=== PATIENT | male | born 1980 | race Caucasian/White ===

== ENCOUNTER 2022-12-05 00:28 | Observation (INO) | payer OTHER ==
[2022-12-05] MEDS ORDERED: Morphine 4 MG/ML VIAL ONE ×2 (01:23→04:05)
[2022-12-05] MEDS ORDERED: Ondansetron PF 4 MG/2 ML Vial ONE (01:23)
[2022-12-05] MEDS ORDERED: fentaNYL 50 mcg/mL 1 mL Vial ONE (01:23)
[2022-12-05] MEDS ORDERED: Acetaminophen 500 MG TAB ONE (03:17)
[2022-12-05 05:16] VITALS: BMI 34.1
[2022-12-05 06:19] LABS: Troponin I Less than 0.010 ng/mL (< 0.028)
[2022-12-05 07:46] LABS: ALT (SGPT) 33 U/L (8-55); AST (SGOT) 26 U/L (5-34); Albumin 4.2 g/dL (3.5-5.0); Alkaline Phosphatase 67 U/L (40-110); Anion Gap 16 mmol/L (10-20); BUN (Urea Nitrogen) 19 mg/dL (8.9-20.6); Bilirubin, Total 0.4 mg/dL (0.2-1.2); Calc. Creatinine Clearance 159 mL/min (70-130); Calcium 9.2 mg/dL (7.8-10.44); Carbon Dioxide 21 mmol/L (22-29); Chloride 105 mmol/L (98-107); Estimated GFR 84; Glucose 106 mg/dL (70-105); Protein, Total 8.2 g/dL (6.0-8.3); Sodium 138 mmol/L (136-145)
[2022-12-05 08:10] LABS: Lipase 59 U/L (8-78)
[2022-12-05 08:21] LABS: #Basophils 0.1 thou/uL (0.0-0.2); #Eosinphils 0.2 thou/uL (0.0-0.7); #Lymphocytes 1.6 thou/uL (1.20-3.40); #Monocytes 0.5 thou/uL (0.11-0.59); #Neutrophils 2.7 thou/uL (1.40-6.50); %Basophils 2.5 % (0.0-1.0); %Eosinophils 3.8 % (0.0-10.0); %Lymphocytes 30.9 % (21.0-51.0); %Monocytes 9.5 % (0.0-10.0); %Neutrophils 53.3 % (42.0-75.0); Hemoglobin 13.6 g/dL (14.0-18.0); Mean Corpuscular HGB CONC 32.3 g/dL (32.0-36.0); Mean Corpuscular Hemoglobin 30.4 pg (27.0-31.0); Mean Corpuscular Volume 94.2 fl (78.0-98.0); Mean Platelet Volume 8.1 fL (7.4-10.4); Platelet Count 172 10x3/uL (130-400); RBC Distribution Width 11.8 % (11.5-14.5); Red Blood Cell (RBC) Count 4.46 mill/uL (4.70-6.10); White Blood Cell (WBC) Count 5.1 10x3/uL (4.8-10.8)
[2022-12-05 08:31] LABS: Prothrombin Time 12.5 sec (12.0-14.7)
[2022-12-05 08:32] LABS: INR-International Normal Ratio 0.9; PTT 22.7 sec (22.9-36.1)
[2022-12-05] MEDS ORDERED: Senokot S 8.6-50 MG TAB PO PRN (08:36)
[2022-12-05] MEDS ORDERED: Sodium Chloride 0.9% 1,000 ML IV SCH (08:45)
[2022-12-05] MEDS: Morphine 4 MG/ML VIAL SLOW IVP PRN ×2 (09:17→16:13)
[2022-12-05] MEDS: Ondansetron PF 4 MG/2 ML Vial IVP PRN (09:18)
[2022-12-05 09:52] LABS: Troponin I Less than 0.010 ng/mL (< 0.028)
[2022-12-05] MEDS: HYDROmorphone 2 MG TAB PO PRN ×3 (11:53→23:40)
[2022-12-05] MEDS ORDERED: Communication Order-Pharmacy FS PRN (15:00)
[2022-12-05] MEDS ORDERED: Iopamidol-370 76% 500 ML MDV (1 ML CHARGE) ONE (15:13)
[2022-12-06] MEDS ORDERED: Sodium Chloride 0.9% 500 ML IV SCH ×2 (00:01→10:00)
[2022-12-06 04:27] LABS: #Eosinphils 0.2 thou/uL (0.0-0.7); #Lymphocytes 1.4 thou/uL (1.20-3.40); #Monocytes 0.5 thou/uL (0.11-0.59); #Neutrophils 1.7 thou/uL (1.40-6.50); %Eosinophils 5.7 % (0.0-10.0); %Lymphocytes 36.8 % (21.0-51.0); %Monocytes 12.5 % (0.0-10.0); %Neutrophils 45.1 % (42.0-75.0); Hemoglobin 13.8 g/dL (14.0-18.0); Mean Corpuscular HGB CONC 35.2 g/dL (32.0-36.0); Mean Corpuscular Hemoglobin 33.4 pg (27.0-31.0); Mean Corpuscular Volume 94.8 fl (78.0-98.0); Mean Platelet Volume 7.5 fL (7.4-10.4); Platelet Count 174 10x3/uL (130-400); RBC Distribution Width 11.6 % (11.5-14.5); Red Blood Cell (RBC) Count 4.15 mill/uL (4.70-6.10); White Blood Cell (WBC) Count 3.8 10x3/uL (4.8-10.8)
[2022-12-06 04:55] LABS: Anion Gap 13 mmol/L (10-20); BUN (Urea Nitrogen) 14 mg/dL (8.9-20.6); Calc. Creatinine Clearance 160 mL/min (70-130); Calcium 8.8 mg/dL (7.8-10.44); Carbon Dioxide 23 mmol/L (22-29); Cardiac Risk 3.1 (Less than 4.5); Chloride 106 mmol/L (98-107); Cholesterol 118 mg/dl (< 200 Desired); Estimated GFR 85; Glucose 103 mg/dL (70-105); HDL Cholesterol 38 mg/dL (>60 Neg Risk); LDL Cholesterol, Calculated 62 mg/dL; Sodium 138 mmol/L (136-145); Triglycerides 88 mg/dL (Less than 150)
[2022-12-06] MEDS: Lisinopril 20 MG TAB PO SCH (05:45)
[2022-12-06] MEDS: Escitalopram Oxalate 20 mg Tablet PO SCH (05:45)
[2022-12-06] MEDS: Atorvastatin Calcium 40 MG TAB PO SCH (05:46)
[2022-12-06] MEDS: HYDROmorphone 2 MG TAB PO PRN ×2 (06:26→19:35)
[2022-12-06] MEDS ORDERED: Nitroglycerin 50 MG/250 ML BOT 250 ML ONE (08:57)
[2022-12-06] MEDS ORDERED: Verapamil 5 MG/2 ML VIAL ONE (08:57)
[2022-12-06] MEDS ORDERED: Heparin 10,000 UNITS/ 10 ML VIAL ONE (08:57)
[2022-12-06] MEDS ORDERED: Lidocaine 1% PF 5 ML VIAL ONE (08:57)
[2022-12-06] MEDS ORDERED: fentaNYL 50 mcg/mL 1 mL Vial ONE (09:20)
[2022-12-06] MEDS ORDERED: Midazolam HCl 2 mg/2 ml Vial ONE (09:21)
[2022-12-06] MEDS ORDERED: Iopamidol 370 76% 100 ML VIAL ONE (09:48)
[2022-12-06] MEDS ORDERED: Sodium Chloride 0.9% 200 ML IV PRN (09:55)
[2022-12-06] MEDS: Acetaminophen/Codeine 30-300mg Tablet PO PRN ×2 (11:54→17:38)
[2022-12-06] MEDS: Ondansetron PF 4 MG/2 ML Vial IVP PRN (19:34)
[2022-12-06] MEDS: Morphine 4 MG/ML VIAL SLOW IVP PRN (21:53)
[2022-12-07] MEDS: Ondansetron PF 4 MG/2 ML Vial IVP PRN ×2 (02:02→10:09)
[2022-12-07] MEDS: Morphine 4 MG/ML VIAL SLOW IVP PRN ×3 (02:02→10:09)
[2022-12-07 05:35] LABS: #Eosinphils 0.2 thou/uL (0.0-0.7); #Lymphocytes 1.3 thou/uL (1.20-3.40); #Monocytes 0.4 thou/uL (0.11-0.59); #Neutrophils 2.2 thou/uL (1.40-6.50); %Basophils 0.4 % (0.0-1.0); %Eosinophils 4.4 % (0.0-10.0); %Lymphocytes 31.3 % (21.0-51.0); %Monocytes 10.1 % (0.0-10.0); %Neutrophils 53.9 % (42.0-75.0); Hemoglobin 14.4 g/dL (14.0-18.0); Mean Corpuscular HGB CONC 35.5 g/dL (32.0-36.0); Mean Corpuscular Hemoglobin 33.1 pg (27.0-31.0); Mean Corpuscular Volume 93.3 fl (78.0-98.0); Mean Platelet Volume 7.4 fL (7.4-10.4); Platelet Count 176 10x3/uL (130-400); RBC Distribution Width 11.4 % (11.5-14.5); Red Blood Cell (RBC) Count 4.37 mill/uL (4.70-6.10); White Blood Cell (WBC) Count 4.1 10x3/uL (4.8-10.8)
[2022-12-07 06:12] LABS: ALT (SGPT) 25 U/L (8-55); AST (SGOT) 16 U/L (5-34); Albumin 3.9 g/dL (3.5-5.0); Alkaline Phosphatase 65 U/L (40-110); Anion Gap 14 mmol/L (10-20); BUN (Urea Nitrogen) 18 mg/dL (8.9-20.6); Bilirubin, Total 0.3 mg/dL (0.2-1.2); Calc. Creatinine Clearance 160 mL/min (70-130); Calcium 9.3 mg/dL (7.8-10.44); Carbon Dioxide 22 mmol/L (22-29); Chloride 104 mmol/L (98-107); Estimated GFR 85; Glucose 101 mg/dL (70-105); Potassium 3.9 mmol/L (3.5-5.1); Protein, Total 6.9 g/dL (6.0-8.3); Sodium 136 mmol/L (136-145)
[2022-12-07] MEDS: Acetaminophen 325 MG TAB PO PRN ×2 (08:07→14:28)
[2022-12-07] MEDS: Lisinopril 20 MG TAB PO SCH (08:09)
[2022-12-07] MEDS: Escitalopram Oxalate 20 mg Tablet PO SCH (08:09)
[2022-12-07] MEDS: Atorvastatin Calcium 40 MG TAB PO SCH (08:09)
[2022-12-07] MEDS ORDERED: Iopamidol-370 76% 500 ML MDV (1 ML CHARGE) ONE (09:59)
[2022-12-07] MEDS ORDERED: Sodium Chloride 0.9% 500 ML IV SCH (10:00)
[2022-12-07 12:31] VITALS: BP 119/61; TEMP 97.8
== END 2022-12-07 14:40 | disposition home or self-care (01) ==
LOC: ERS 00:28 → ERHOLD 04:53 → 2SW 08:29
PROVIDERS: ADMIT Internal Medicine; ATTEND Internal Medicine
PROC: 4A023N7 Measurement of Cardiac Sampling and Pressure, Left Heart, Percutaneous Approach (ICD-10-PCS; principal; 2022-12-06)
PROC: B2111ZZ Fluoroscopy of Multiple Coronary Arteries using Low Osmolar Contrast (ICD-10-PCS; 2022-12-06)
DX: R55 Syncope and collapse (principal); R07.89 Other chest pain; I10 Essential (primary) hypertension; E78.5 Hyperlipidemia, unspecified; I42.9 Cardiomyopathy, unspecified; E89.6 Postprocedural adrenocortical (-medullary) hypofunction; I08.3 Combined rheumatic disorders of mitral, aortic and tricuspid valves; Z86.711 Personal history of pulmonary embolism; Z79.899 Other long term (current) drug therapy; Z88.1 Allergy status to other antibiotic agents; Z88.2 Allergy status to sulfonamides; Z88.4 Allergy status to anesthetic agent; Z88.6 Allergy status to analgesic agent; Z88.8 Allergy status to other drugs, medicaments and biological substances; Z95.0 Presence of cardiac pacemaker
CPT/HCPCS: 36415; 36416; 70450; 71045; 71275; 74174; 80048; 80053; 80061; 83690; 83880; 84443; 84484; 85025; 85379; 85610; 85730; 93005; 93010; 93306; 93458; 93880; 94760; 96374; 96375; 96376; 99152; 99153; C1769; C1894; G0378; J1644; J2250; J2270; J2405; J3010; J7030; J7050; Q9967

== ENCOUNTER 2023-05-21 02:22 | Inpatient (IN) | payer OTHER ==
[2023-05-21 03:12] LABS: Bacteria/HPF None Seen HPF (None Seen); Bilirubin Negative (Negative); Blood, Urine Negative (Negative); CAUTI Indications for Culture Pelvic or flank pain; Clarity Clear (Clear); Glucose, Urine (Dipstick) Normal (Negative); Ketone, Urine Negative (Negative); Leukocyte Negative Leu/uL (Negative); Nitrite Negative (Negative); Protein, Urine (Dipstick) Negative (Neg-Trace); RBC/HPF None Seen HPF (0-3); Specific Gravity, Urine 1.013 (1.002-1.036); Squamous Epithelial None Seen HPF (0-3); Urobilinogen Normal mg/dL (Less than 2); WBC/HPF 0-3 HPF (0-3); pH, Urine 5.5 (5.0-9.0)
[2023-05-21 03:14] LABS: Urine Culture Reflex No No
[2023-05-21] MEDS ORDERED: Ondansetron PF 4 MG/2 ML Vial ONE (03:14)
[2023-05-21 03:15] LABS: #Eosinphils 0.1 thou/uL (0.0-0.7); #Monocytes 0.5 thou/uL (0.11-0.59); %Basophils 0.3 % (0.0-1.0); %Eosinophils 2.7 % (0.0-10.0); %Lymphocytes 31.1 % (21.0-51.0); %Neutrophils 52.6 % (42.0-75.0); Hematocrit 33.8 % (42.0-52.0); Hemoglobin 12.1 g/dL (14.0-18.0); Mean Corpuscular HGB CONC 35.8 g/dL (32.0-36.0); Mean Corpuscular Hemoglobin 32.2 pg (27.0-31.0); Mean Corpuscular Volume 89.9 fl (78.0-98.0); Mean Platelet Volume 9.3 fL (7.4-10.4); Platelet Count 189 10x3/uL (130-400); RBC Distribution Width 11.9 % (11.5-14.5); Red Blood Cell (RBC) Count 3.76 mill/uL (4.70-6.10); White Blood Cell (WBC) Count 3.7 10x3/uL (4.8-10.8)
[2023-05-21] MEDS ORDERED: Pantoprazole 40 MG VIAL ONE (04:08)
[2023-05-21] MEDS ORDERED: Morphine 4 MG/ML VIAL ONE (04:08)
[2023-05-21] MEDS ORDERED: Morphine 2 MG/ML VIAL ONE (05:59)
[2023-05-21 06:02] LABS: Anion Gap 18 mmol/L (10-20); Calc. Creatinine Clearance 0 mL/min (70-130); Carbon Dioxide 21 mmol/L (22-29); Chloride 102 mmol/L (98-107); Estimated GFR 94; Potassium 3.5 mmol/L (3.5-5.1); Sodium 137 mmol/L (136-145)
[2023-05-21 06:03] LABS: ALT (SGPT) 31 U/L (8-55); AST (SGOT) 23 U/L (5-34); Albumin 3.9 g/dL (3.5-5.0); Alkaline Phosphatase 68 U/L (40-110); BUN (Urea Nitrogen) 15 mg/dL (8.9-20.6); Bilirubin, Total 0.2 mg/dL (0.2-1.2); Calcium 9.1 mg/dL (7.6-10.4); Globulin 2.9 g/dL (2.4-3.5); Glucose 98 mg/dL (70-105); Protein, Total 6.8 g/dL (6.0-8.3)
[2023-05-21 06:04] LABS: Lipase 37 U/L (8-78)
[2023-05-21] MEDS ORDERED: Morphine 2 MG/ML VIAL SLOW IVP PRN (08:16)
[2023-05-21] MEDS ORDERED: Calcium Carbonate 500 MG ChewTAB PO PRN (08:16)
[2023-05-21] MEDS ORDERED: Senokot S 8.6-50 MG TAB PO PRN (08:16)
[2023-05-21] MEDS ORDERED: Acetaminophen 650 MG Suppository PR PRN (08:16)
[2023-05-21] MEDS ORDERED: Acetaminophen 325 MG TAB PO PRN (08:16)
[2023-05-21 08:48] VITALS: BMI 36.3
[2023-05-21] MEDS ORDERED: Magnesium 2 GM/50 ML(in water) 2 GM in Premix Bag 1 BAG IVPB SCH (09:00)
[2023-05-21] MEDS ORDERED: Atenolol 25 MG TAB PO SCH (09:00)
[2023-05-21] MEDS: NS 0.9% w/ 20 MEQ KCL 1,000 ML/1,000 ML BAG IV SCH ×2 (09:13→17:12)
[2023-05-21] MEDS: Pantoprazole 40 MG VIAL IVP SCH ×2 (09:14→20:51)
[2023-05-21] MEDS: Ondansetron PF 4 MG/2 ML Vial IVP PRN ×2 (09:15→18:27)
[2023-05-21] MEDS ORDERED: Morphine 2 MG/ML VIAL SLOW IVP SCH (10:45)
[2023-05-21 10:56] LABS: Hematocrit 33.8 % (42.0-52.0); Hemoglobin 11.8 g/dL (14.0-18.0)
[2023-05-21] MEDS: Morphine 4 MG/ML VIAL SLOW IVP PRN ×2 (12:16→15:30)
[2023-05-21 14:55] LABS: Hematocrit 35.1 % (42.0-52.0); Hemoglobin 12.3 g/dL (14.0-18.0)
[2023-05-21 15:20] LABS: Cardiac Risk 3.7 (Less than 4.5)
[2023-05-21] MEDS: HYDROmorphone 2 MG TAB PO PRN ×2 (17:17→20:55)
[2023-05-21] MEDS: predniSONE 1 MG TAB PO SCH ×2 (18:28→20:51)
[2023-05-21] MEDS: GoLYTELY 4,000 ml Bottle PO SCH (20:49)
[2023-05-21] MEDS: Diazepam 5 MG TAB PO SCH (20:51)
[2023-05-22] MEDS: HYDROmorphone 2 MG TAB PO PRN ×3 (02:09→22:23)
[2023-05-22] MEDS: GoLYTELY 4,000 ml Bottle PO SCH (02:09)
[2023-05-22] MEDS: NS 0.9% w/ 20 MEQ KCL 1,000 ML/1,000 ML BAG IV SCH ×2 (02:09→08:56)
[2023-05-22 05:33] LABS: #Eosinphils 0.1 thou/uL (0.0-0.7); #Monocytes 0.4 thou/uL (0.11-0.59); #Neutrophils 1.7 thou/uL (1.40-6.50); %Basophils 0.3 % (0.0-1.0); %Eosinophils 3.3 % (0.0-10.0); %Lymphocytes 29.8 % (21.0-51.0); %Monocytes 12.5 % (0.0-10.0); %Neutrophils 54.1 % (42.0-75.0); Hematocrit 33.1 % (42.0-52.0); Hemoglobin 11.7 g/dL (14.0-18.0); Mean Corpuscular HGB CONC 35.3 g/dL (32.0-36.0); Mean Corpuscular Hemoglobin 31.9 pg (27.0-31.0); Mean Corpuscular Volume 90.2 fl (78.0-98.0); Mean Platelet Volume 9.2 fL (7.4-10.4); Platelet Count 167 10x3/uL (130-400); Red Blood Cell (RBC) Count 3.67 mill/uL (4.70-6.10); White Blood Cell (WBC) Count 3.1 10x3/uL (4.8-10.8)
[2023-05-22 06:06] LABS: ALT (SGPT) 31 U/L (8-55); AST (SGOT) 19 U/L (5-34); Albumin 3.7 g/dL (3.5-5.0); Alkaline Phosphatase 67 U/L (40-110); Anion Gap 12 mmol/L (10-20); BUN (Urea Nitrogen) 9 mg/dL (8.9-20.6); Bilirubin, Total 0.6 mg/dL (0.2-1.2); Calc. Creatinine Clearance 206 mL/min (70-130); Calcium 8.9 mg/dL (7.8-10.44); Carbon Dioxide 27 mmol/L (22-29); Chloride 104 mmol/L (98-107); Estimated GFR 107; Globulin 2.4 g/dL (2.4-3.5); Glucose 90 mg/dL (70-105); Protein, Total 6.1 g/dL (6.0-8.3); Sodium 139 mmol/L (136-145)
[2023-05-22] MEDS: Atenolol 25 MG TAB PO SCH (08:57)
[2023-05-22] MEDS: Pantoprazole 40 MG VIAL IVP SCH ×2 (08:58→21:15)
[2023-05-22] MEDS: predniSONE 1 MG TAB PO SCH ×4 (08:58→21:15)
[2023-05-22] MEDS: Sodium Chloride 0.9% 1,000 ML IV SCH ×2 (12:31→17:03)
[2023-05-22] MEDS ORDERED: ePHEDrine Sulfate 50 MG/10 ML VIAL ONE (13:27)
[2023-05-22] MEDS ORDERED: PROPOFOL 200 MG/20 ML VIAL ONE (13:27)
[2023-05-22] MEDS ORDERED: Lidocaine 1% PF 5 ML VIAL ONE (13:27)
[2023-05-22] MEDS ORDERED: Ondansetron HCl/PF 4 MG/2 ML Vial IVP PRN (13:55)
[2023-05-22] MEDS ORDERED: HYDROmorphone 2 MG/ML VIAL SLOW IVP PRN (13:55)
[2023-05-22] MEDS ORDERED: Meperidine HCl/PF 25 MG/ML VIAL SLOW IVP PRN (13:55)
[2023-05-22 15:24] LABS: Hemoglobin 12.4 g/dL (14.0-18.0)
[2023-05-22] MEDS: Ondansetron PF 4 MG/2 ML Vial IVP PRN (17:43)
[2023-05-22] MEDS: Diazepam 5 MG TAB PO SCH (21:15)
[2023-05-23] MEDS: Ondansetron PF 4 MG/2 ML Vial IVP PRN (01:15)
[2023-05-23] MEDS: Sodium Chloride 0.9% 1,000 ML IV SCH (02:49)
[2023-05-23] MEDS: HYDROmorphone 2 MG TAB PO PRN ×2 (03:00→09:32)
[2023-05-23 05:16] VITALS: TEMP 98.1
[2023-05-23 06:09] LABS: Hematocrit 33.4 % (42.0-52.0); Hemoglobin 11.7 g/dL (14.0-18.0); Mean Corpuscular Hemoglobin 31.3 pg (27.0-31.0); Mean Corpuscular Volume 89.3 fl (78.0-98.0); Mean Platelet Volume 9.3 fL (7.4-10.4); Platelet Count 182 10x3/uL (130-400); RBC Distribution Width 11.9 % (11.5-14.5); Red Blood Cell (RBC) Count 3.74 mill/uL (4.70-6.10); White Blood Cell (WBC) Count 3.6 10x3/uL (4.8-10.8)
[2023-05-23] MEDS ORDERED: Escitalopram Oxalate 20 mg Tablet PO SCH (09:00)
[2023-05-23 09:23] VITALS: BP 136/75
[2023-05-23] MEDS: predniSONE 1 MG TAB PO SCH (09:23)
[2023-05-23] MEDS: Pantoprazole 40 MG VIAL IVP SCH (09:24)
[2023-05-23] MEDS: Atenolol 25 MG TAB PO SCH (09:24)
== END 2023-05-23 14:20 | disposition home or self-care (01) | DRG 393 ==
LOC: ERS 02:22 → SURG A 06:16
PROVIDERS: ADMIT Student in an Organized Health Care Education/Training Program; ATTEND Internal Medicine
PROC: 0DJD8ZZ Inspection of Lower Intestinal Tract, Via Natural or Artificial Opening Endoscopic (ICD-10-PCS; principal; 2023-05-22)
DX: K64.8 Other hemorrhoids (principal); K85.90 Acute pancreatitis without necrosis or infection, unspecified; C74.90 Malignant neoplasm of unspecified part of unspecified adrenal gland; D62 Acute posthemorrhagic anemia; N17.9 Acute kidney failure, unspecified; I10 Essential (primary) hypertension; E78.5 Hyperlipidemia, unspecified; I49.5 Sick sinus syndrome; F41.9 Anxiety disorder, unspecified; F32.A Depression, unspecified; G89.4 Chronic pain syndrome; Z86.711 Personal history of pulmonary embolism; Z90.49 Acquired absence of other specified parts of digestive tract; Z88.2 Allergy status to sulfonamides; Z88.8 Allergy status to other drugs, medicaments and biological substances; Z95.0 Presence of cardiac pacemaker; Z88.1 Allergy status to other antibiotic agents; Z79.899 Other long term (current) drug therapy
CPT/HCPCS: 36415; 80053; 80061; 81001; 82274; 83690; 85025; 85027; 86850; 86900; 86901; 96374; 96375; 96376; C9113; J2270; J2272; J2405; J2704; J3475; J3480; J7050; J7512

== ENCOUNTER 2023-06-28 02:27 | Emergency (ER) | payer OTHER ==
[2023-06-28 03:19] LABS: #Eosinphils 0.1 thou/uL (0.0-0.7); #Monocytes 0.5 thou/uL (0.11-0.59); #Neutrophils 1.9 thou/uL (1.40-6.50); %Basophils 0.3 % (0.0-1.0); %Eosinophils 3.5 % (0.0-10.0); %Lymphocytes 25.5 % (21.0-51.0); %Monocytes 14.4 % (0.0-10.0); %Neutrophils 56.3 % (42.0-75.0); Hematocrit 35.9 % (42.0-52.0); Hemoglobin 12.3 g/dL (14.0-18.0); Mean Corpuscular HGB CONC 34.3 g/dL (32.0-36.0); Mean Corpuscular Hemoglobin 30.8 pg (27.0-31.0); Mean Corpuscular Volume 89.8 fl (78.0-98.0); Mean Platelet Volume 9.7 fL (7.4-10.4); Platelet Count 171 10x3/uL (130-400); RBC Distribution Width 12.2 % (11.5-14.5); White Blood Cell (WBC) Count 3.4 10x3/uL (4.8-10.8)
[2023-06-28] MEDS ORDERED: Ondansetron PF 4 MG/2 ML Vial ONE ×2 (03:34→05:03)
[2023-06-28] MEDS ORDERED: Morphine 4 MG/ML VIAL ONE ×3 (03:34→06:27)
[2023-06-28 03:40] LABS: ALT (SGPT) 132 U/L (8-55); AST (SGOT) 64 U/L (5-34); Albumin 4.2 g/dL (3.5-5.0); Alkaline Phosphatase 113 U/L (40-110); Anion Gap 15 mmol/L (10-20); BUN (Urea Nitrogen) 14 mg/dL (8.9-20.6); Bilirubin, Total 0.4 mg/dL (0.2-1.2); Calc. Creatinine Clearance 0 mL/min (70-130); Calcium 9.5 mg/dL (7.8-10.44); Carbon Dioxide 26 mmol/L (22-29); Chloride 103 mmol/L (98-107); Estimated GFR 84; Globulin 2.8 g/dL (2.4-3.5); Glucose 102 mg/dL (70-105); Potassium 3.7 mmol/L (3.5-5.1); Sodium 140 mmol/L (136-145)
[2023-06-28 03:58] LABS: CK (CPK) 164 U/L (30-200); Lipase 33 U/L (8-78)
[2023-06-28 03:59] LABS: INR-International Normal Ratio 0.9; Prothrombin Time 12.1 sec (12.0-14.7)
[2023-06-28 04:01] LABS: Troponin I Less than 0.010 ng/mL (< 0.028)
[2023-06-28] MEDS ORDERED: Iopamidol-370 76% 500 ML MDV (1 ML CHARGE) ONE (12:53)
== END 2023-06-28 07:05 | disposition home or self-care (01) ==
LOC: ERS 02:27
DX: K92.0 Hematemesis (principal); I10 Essential (primary) hypertension; Z79.899 Other long term (current) drug therapy
CPT/HCPCS: 36415; 71275; 74174; 74177; 80053; 82550; 83690; 84484; 85025; 85610; 85730; 86850; 86900; 86901; 93005; 96361; 96374; 96375; 96376; J2270; J2405; Q9967

== ENCOUNTER 2023-07-04 09:43 | Emergency (ER) | payer OTHER ==
[2023-07-04 10:38] LABS: #Eosinphils 0.1 thou/uL (0.0-0.7); #Monocytes 0.4 thou/uL (0.11-0.59); #Neutrophils 1.1 thou/uL (1.40-6.50); %Basophils 0.4 % (0.0-1.0); %Eosinophils 5.4 % (0.0-10.0); %Lymphocytes 36.3 % (21.0-51.0); %Monocytes 13.9 % (0.0-10.0); %Neutrophils 43.6 % (42.0-75.0); Hematocrit 40.1 % (42.0-52.0); Hemoglobin 13.8 g/dL (14.0-18.0); Mean Corpuscular HGB CONC 34.4 g/dL (32.0-36.0); Mean Corpuscular Volume 90.1 fl (78.0-98.0); Mean Platelet Volume 9.6 fL (7.4-10.4); Platelet Count 246 10x3/uL (130-400); RBC Distribution Width 12.4 % (11.5-14.5); Red Blood Cell (RBC) Count 4.45 mill/uL (4.70-6.10); White Blood Cell (WBC) Count 2.6 10x3/uL (4.8-10.8)
[2023-07-04 10:51] LABS: Prothrombin Time 13.4 sec (12.0-14.7)
[2023-07-04 10:52] LABS: PTT 27.5 sec (22.9-36.1)
[2023-07-04 11:02] LABS: ALT (SGPT) 54 U/L (8-55); AST (SGOT) 26 U/L (5-34); Alkaline Phosphatase 107 U/L (40-110); Anion Gap 14 mmol/L (10-20); BUN (Urea Nitrogen) 13 mg/dL (8.9-20.6); Bilirubin, Total 0.6 mg/dL (0.2-1.2); Calc. Creatinine Clearance 0 mL/min (70-130); Calcium 9.7 mg/dL (7.8-10.44); Carbon Dioxide 25 mmol/L (22-29); Chloride 104 mmol/L (98-107); Estimated GFR 74; Glucose 113 mg/dL (70-105); Lipase 57 U/L (8-78); Potassium 3.2 mmol/L (3.5-5.1); Sodium 140 mmol/L (136-145)
[2023-07-04 11:12] LABS: Troponin I Less than 0.010 ng/mL (< 0.028)
[2023-07-04] MEDS ORDERED: Pantoprazole 40 MG VIAL ONE (12:12)
[2023-07-04] MEDS ORDERED: Ondansetron PF 4 MG/2 ML Vial ONE (12:12)
[2023-07-04] MEDS ORDERED: Famotidine/PF 20 mg/2ml Vial ONE (12:12)
== END 2023-07-04 14:57 | disposition left against medical advice (07) ==
LOC: ERS 09:43
DX: K92.0 Hematemesis (principal); R10.10 Upper abdominal pain, unspecified; I10 Essential (primary) hypertension
CPT/HCPCS: 36415; 80053; 83605; 83690; 84484; 85025; 85610; 85730; 87040; 93005; 96361; 96374; 96375; C9113; J2405; S0028

== ENCOUNTER 2023-07-20 01:52 | Emergency (ER) | payer OTHER ==
[2023-07-20] MEDS ORDERED: Ondansetron PF 4 MG/2 ML Vial ONE (02:21)
[2023-07-20] MEDS ORDERED: Morphine 4 MG/ML VIAL ONE (02:21)
[2023-07-20 02:22] LABS: #Eosinphils 0.1 thou/uL (0.0-0.7); #Monocytes 0.6 thou/uL (0.11-0.59); #Neutrophils 2.4 thou/uL (1.40-6.50); %Eosinophils 2.5 % (0.0-10.0); %Lymphocytes 23.2 % (21.0-51.0); %Monocytes 14.2 % (0.0-10.0); %Neutrophils 59.9 % (42.0-75.0); Hematocrit 34.8 % (42.0-52.0); Mean Corpuscular HGB CONC 34.5 g/dL (32.0-36.0); Mean Corpuscular Hemoglobin 30.2 pg (27.0-31.0); Mean Corpuscular Volume 87.7 fl (78.0-98.0); Mean Platelet Volume 9.5 fL (7.4-10.4); Platelet Count 174 10x3/uL (130-400); Red Blood Cell (RBC) Count 3.97 mill/uL (4.70-6.10)
[2023-07-20 02:39] LABS: Bacteria/HPF 1+ HPF (None Seen); Bilirubin Negative (Negative); Blood, Urine Trace (Negative); CAUTI Indications for Culture Acute Hematuria; Clarity Clear (Clear); Glucose, Urine (Dipstick) Normal (Negative); Ketone, Urine Negative (Negative); Leukocyte Negative Leu/uL (Negative); Nitrite Negative (Negative); Protein, Urine (Dipstick) Negative (Neg-Trace); RBC/HPF 0-3 HPF (0-3); Specific Gravity, Urine 1.018 (1.002-1.036); Squamous Epithelial None Seen HPF (0-3); Urobilinogen Normal mg/dL (Less than 2); WBC/HPF 0-3 HPF (0-3); pH, Urine 6.5 (5.0-9.0)
[2023-07-20 02:40] LABS: Urine Culture Reflex No No
[2023-07-20 02:45] LABS: ALT (SGPT) 20 U/L (8-55); AST (SGOT) 16 U/L (5-34); Albumin 4.1 g/dL (3.5-5.0); Alkaline Phosphatase 84 U/L (40-110); Anion Gap 14 mmol/L (10-20); BUN (Urea Nitrogen) 12 mg/dL (8.9-20.6); Bilirubin, Total 0.5 mg/dL (0.2-1.2); Calc. Creatinine Clearance 0 mL/min (70-130); Calcium 9.2 mg/dL (7.8-10.44); Carbon Dioxide 25 mmol/L (22-29); Chloride 104 mmol/L (98-107); Estimated GFR 93; Glucose 103 mg/dL (70-105); Lipase 71 U/L (8-78); Potassium 3.7 mmol/L (3.5-5.1); Protein, Total 7.1 g/dL (6.0-8.3); Sodium 139 mmol/L (136-145)
[2023-07-20] MEDS ORDERED: fentaNYL 50 mcg/mL 1 mL Vial ONE ×2 (02:53→03:24)
[2023-07-20] MEDS ORDERED: Iopamidol 370 76% 100 ML VIAL ONE (09:21)
== END 2023-07-20 04:19 | disposition home or self-care (01) ==
LOC: ERS 01:52
DX: R10.9 Unspecified abdominal pain (principal); R31.9 Hematuria, unspecified; R11.2 Nausea with vomiting, unspecified; I10 Essential (primary) hypertension
CPT/HCPCS: 74177; 80053; 81001; 83690; 85025; 96361; 96374; 96375; J2270; J2405; J3010; Q9967

== ENCOUNTER 2023-09-29 23:47 | Inpatient (IN) | payer OTHER ==
[2023-09-30 00:20] LABS: #Eosinphils 0.1 thou/uL (0.0-0.7); #Monocytes 0.8 thou/uL (0.11-0.59); #Neutrophils 2.4 thou/uL (1.40-6.50); %Basophils 0.4 % (0.0-1.0); %Eosinophils 2.8 % (0.0-10.0); %Lymphocytes 29.1 % (21.0-51.0); %Monocytes 16.6 % (0.0-10.0); %Neutrophils 50.9 % (42.0-75.0); Hematocrit 38.1 % (42.0-52.0); Mean Corpuscular HGB CONC 34.1 g/dL (32.0-36.0); Mean Corpuscular Hemoglobin 29.7 pg (27.0-31.0); Mean Platelet Volume 9.6 fL (7.4-10.4); Platelet Count 229 10x3/uL (130-400); RBC Distribution Width 13.1 % (11.5-14.5); Red Blood Cell (RBC) Count 4.38 mill/uL (4.70-6.10); White Blood Cell (WBC) Count 4.6 10x3/uL (4.8-10.8)
[2023-09-30] MEDS ORDERED: Ondansetron PF 4 MG/2 ML Vial ONE ×3 (00:45→09:41)
[2023-09-30] MEDS ORDERED: Morphine 4 MG/ML VIAL ONE (00:45)
[2023-09-30 00:48] LABS: Troponin I Less than 0.010 ng/mL (< 0.028)
[2023-09-30 00:51] LABS: ALT (SGPT) 27 U/L (8-55); AST (SGOT) 14 U/L (5-34); Albumin 4.3 g/dL (3.5-5.0); Alkaline Phosphatase 83 U/L (40-110); Anion Gap 14 mmol/L (10-20); BUN (Urea Nitrogen) 13 mg/dL (8.9-20.6); Bilirubin, Total 0.3 mg/dL (0.2-1.2); Calc. Creatinine Clearance 0 mL/min (70-130); Calcium 9.3 mg/dL (7.8-10.44); Carbon Dioxide 23 mmol/L (22-29); Chloride 106 mmol/L (98-107); Estimated GFR 81; Globulin 3.3 g/dL (2.4-3.5); Glucose 82 mg/dL (70-105); Magnesium 1.9 mg/dL (1.6-2.6); Potassium 3.6 mmol/L (3.5-5.1); Protein, Total 7.6 g/dL (6.0-8.3); Sodium 139 mmol/L (136-145)
[2023-09-30] MEDS ORDERED: Aspirin Chewable 81 MG TAB ONE ×2 (01:46→09:41)
[2023-09-30] MEDS ORDERED: HYDROmorphone 0.5 MG/0.5 ML SYRINGE ONE (02:56)
[2023-09-30] MEDS ORDERED: Morphine 2 MG/ML VIAL ONE (05:55)
[2023-09-30] MEDS ORDERED: Enoxaparin 30 MG (0.3 mL) SYRINGE ONE (06:22)
[2023-09-30] MEDS ORDERED: Enoxaparin 100 MG (1 mL) SYRINGE ONE (06:22)
[2023-09-30] MEDS: Morphine 2 MG/ML VIAL SLOW IVP SCH (06:25)
[2023-09-30 07:58] LABS: Troponin I Less than 0.010 ng/mL (< 0.028)
[2023-09-30] MEDS ORDERED: Acetaminophen 325 MG TAB PO PRN (08:43)
[2023-09-30] MEDS ORDERED: HYDROmorphone 2 MG TAB PO PRN (08:43)
[2023-09-30] MEDS ORDERED: fentaNYL 50 mcg/mL 1 mL Vial ONE ×2 (09:41→12:23)
[2023-09-30] MEDS ORDERED: Pantoprazole 40 MG VIAL ONE (09:41)
[2023-09-30] MEDS: Atenolol 50 MG TAB PO SCH (09:58)
[2023-09-30] MEDS: Pantoprazole 40 MG VIAL IVP SCH (09:58)
[2023-09-30] MEDS: Aspirin Chewable 81 MG TAB PO SCH (09:58)
[2023-09-30] MEDS: Ondansetron PF 4 MG/2 ML Vial IVP PRN ×2 (09:59→21:40)
[2023-09-30] MEDS: fentaNYL 50 mcg/mL 1 mL Vial SLOW IVP PRN ×2 (09:59→21:25)
[2023-09-30] MEDS ORDERED: Iopamidol 370 76% 100 ML VIAL ONE (10:44)
[2023-09-30] MEDS: Hydrocortisone Sod Succ/PF 100 mg/2 ml Vial IVP SCH (14:37)
[2023-09-30 16:23] VITALS: BMI 41.5
[2023-09-30] MEDS: Enoxaparin 100 MG (1 mL) SYRINGE SC SCH (16:49)
[2023-09-30] MEDS: Enoxaparin 40 MG (0.4 mL) SYRINGE SC SCH (16:50)
[2023-09-30 18:04] LABS: Troponin I Less than 0.010 ng/mL (< 0.028)
[2023-09-30] MEDS ORDERED: Enoxaparin 80 MG (0.8 mL) SYRINGE SC SCH (21:00)
[2023-09-30] MEDS: Atorvastatin Calcium 40 MG TAB PO SCH (21:11)
[2023-09-30] MEDS: Diazepam 5 MG TAB PO PRN (22:32)
[2023-10-01 01:58] LABS: Amphetamine Not Detected (NotDetected); Barbiturates Screen Not Detected (NotDetected); Benzodiazepine Screen Detected (NotDetected); Cocaine Metabolite Screen Not Detected (NotDetected); Methadone Not Detected (NotDetected); Methamphetamine Not Detected (NotDetected); Opiate Screen Detected (NotDetected); Oxycodone Screen Not Detected (NotDetected); Phencyclidine (PCP) Not Detected (NotDetected); THC/Cannabinoid Screen Not Detected (NotDetected); Tricyclic Screen Not Detected (NotDetected)
[2023-10-01] MEDS: Escitalopram Oxalate 20 mg Tablet PO SCH (09:20)
[2023-10-01 10:59] LABS: Anion Gap 12 mmol/L (10-20); BUN (Urea Nitrogen) 11 mg/dL (8.9-20.6); Calc. Creatinine Clearance 191 mL/min (70-130); Calcium 9.1 mg/dL (7.8-10.44); Carbon Dioxide 24 mmol/L (22-29); Cardiac Risk 4.8 (Less than 4.5); Chloride 105 mmol/L (98-107); Cholesterol 144 mg/dl (< 200 Desired); Estimated GFR 98; Glucose 123 mg/dL (70-105); HDL Cholesterol 30 mg/dL (>60 Neg Risk); LDL Cholesterol, Calculated 71 mg/dL; Sodium 137 mmol/L (136-145); Triglycerides 215 mg/dL (Less than 150)
[2023-10-01] MEDS ORDERED: Senokot S 8.6-50 MG TAB PO PRN (14:45)
[2023-10-01 16:16] VITALS: TEMP 98.1
[2023-10-01 16:17] VITALS: BP 122/73
[2023-10-01] MEDS: predniSONE 1 MG TAB PO SCH (17:41)
== END 2023-10-01 18:58 | disposition home or self-care (01) | DRG 311 ==
LOC: ERS 23:47 → ERHOLD 09-30 05:11 → 2NO 09-30 05:12 → ERHOLD 09-30 13:14 → 2NO 09-30 14:02
PROVIDERS: ADMIT Student in an Organized Health Care Education/Training Program; ATTEND Family Medicine
DX: I20.0 Unstable angina (principal); C74.90 Malignant neoplasm of unspecified part of unspecified adrenal gland; I10 Essential (primary) hypertension; I48.91 Unspecified atrial fibrillation; E78.5 Hyperlipidemia, unspecified; F39 Unspecified mood [affective] disorder; G89.3 Neoplasm related pain (acute) (chronic); R11.2 Nausea with vomiting, unspecified; K21.9 Gastro-esophageal reflux disease without esophagitis; Z86.711 Personal history of pulmonary embolism; Z95.0 Presence of cardiac pacemaker; Z95.5 Presence of coronary angioplasty implant and graft; Z98.890 Other specified postprocedural states; Z79.899 Other long term (current) drug therapy; Z82.49 Family history of ischemic heart disease and other diseases of the circulatory system; Z88.8 Allergy status to other drugs, medicaments and biological substances; Z88.2 Allergy status to sulfonamides; Z90.49 Acquired absence of other specified parts of digestive tract; Z90.89 Acquired absence of other organs; Z79.01 Long term (current) use of anticoagulants
CPT/HCPCS: 36415; 71045; 71275; 80048; 80053; 80061; 80306; 83690; 83735; 83880; 84484; 85025; 93005; 93306; 96374; 96375; 96376; C9113; J1170; J1650; J1720; J2270; J2272; J2405; J3010; J7512; Q9967

== ENCOUNTER 2024-02-09 05:35 | Emergency (ER) | payer SELFPAY ==
[2024-02-09] MEDS ORDERED: Lidocaine 2% Viscous 10 mL, Alum & Magn 30 mL SSW SCH (06:30)
== END 2024-02-09 07:15 ==
LOC: ERS 05:35
DX: K92.2 Gastrointestinal hemorrhage, unspecified (principal); C74.90 Malignant neoplasm of unspecified part of unspecified adrenal gland
CPT/HCPCS: 99284

== ENCOUNTER 2024-09-28 09:53 | Inpatient (IN) | payer SELFPAY ==
[2024-09-28] MEDS ORDERED: Iopamidol-370 76% 500 ML MDV (1 ML CHARGE) ONE (10:31)
[2024-09-28] MEDS ORDERED: Aspirin Chewable 81 MG TAB ONE (10:43)
[2024-09-28] MEDS ORDERED: HYDROmorphone 0.5 MG/0.5 ML SYRINGE ONE ×4 (11:45→18:19)
[2024-09-28] MEDS ORDERED: Ondansetron PF 4 MG/2 ML Vial ONE ×3 (11:46→12:25)
[2024-09-28 11:50] LABS: #Basophils Less than 0.03 10x3/uL (0.0-0.2); %Basophils 0.4 % (0.0-1.0); %Eosinophils 6.2 % (0.0-10.0); %Lymphocytes 25.5 % (21.0-51.0); %Monocytes 16.4 % (0.0-10.0); %Neutrophils 51.1 % (42.0-75.0); Hematocrit 32.8 % (42.0-52.0); Hemoglobin 10.5 g/dL (14.0-18.0); Mean Corpuscular Hemoglobin 26.2 pg (27.0-31.0); Mean Corpuscular Volume 81.8 fL (78.0-98.0); Mean Platelet Volume 9.4 fL (7.4-10.4); Platelet Count 214 10x3/uL (130-400); RBC Distribution Width 13.6 % (11.5-14.5); Red Blood Cell (RBC) Count 4.01 mill/uL (4.70-6.10)
[2024-09-28] MEDS ORDERED: methylPREDNISolone Sod Succ/PF 125 MG/2 ML VIAL ONE (12:05)
[2024-09-28] MEDS ORDERED: diphenhydrAMINE 50 MG/ML VIAL ONE (12:05)
[2024-09-28] MEDS ORDERED: Famotidine/PF 20 mg/2ml Vial ONE (12:06)
[2024-09-28 12:09] LABS: Troponin I Less than 0.010 ng/mL (< 0.028)
[2024-09-28 12:10] LABS: ALT (SGPT) 23 U/L (Less than 45); AST (SGOT) 21 U/L (11-34); Albumin 3.9 g/dL (3.1-4.5); Alkaline Phosphatase 78 U/L (40-110); Anion Gap 13 mmol/L (10-20); BUN (Urea Nitrogen) 9 mg/dL (8.9-20.6); Bilirubin, Total 0.3 mg/dL (0.3-1.2); Calc. Creatinine Clearance 0 mL/min (70-130); Calcium 9.2 mg/dL (7.8-10.44); Carbon Dioxide 23 mmol/L (22-29); Chloride 108 mmol/L (98-107); Estimated GFR 83; Globulin 3.4 g/dL (2.4-3.5); Glucose 113 mg/dL (70-105); Potassium 3.8 mmol/L (3.5-5.1); Protein, Total 7.3 g/dL (6.0-8.3); Sodium 140 mmol/L (136-145)
[2024-09-28 16:19] LABS: Troponin I Less than 0.010 ng/mL (< 0.028)
[2024-09-28 16:21] LABS: Lactic Acid 2.33 mmol/L (0.50-2.20)
[2024-09-28] MEDS ORDERED: Acetaminophen 500 MG TAB ONE (18:19)
[2024-09-28] MEDS ORDERED: Cefepime 2 GM VIAL ONE (18:20)
[2024-09-28] MEDS ORDERED: Promethazine HCl 25 MG/ML VIAL ONE (18:20)
[2024-09-28] MEDS ORDERED: Sodium Chloride 0.9% 100 ML ONE (18:20)
[2024-09-28] MEDS ORDERED: Fentanyl 100 MCG/2 ML VIAL SLOW IVP PRN ×2 (18:30→20:30)
[2024-09-28] MEDS ORDERED: Acetaminophen 325 MG TAB PO PRN (19:30)
[2024-09-28] MEDS ORDERED: Ondansetron ODT 4 MG TAB PO PRN (19:30)
[2024-09-28 20:14] VITALS: BMI 36.8
[2024-09-28] MEDS: Sodium Chloride 0.9% 1,000 ML IV SCH (20:50)
[2024-09-28] MEDS: Vancomycin (BATCH) 2.5 GM in Premix 1 BAG IVPB SCH (20:51)
[2024-09-28] MEDS: Enoxaparin 100 MG (1 mL) SYRINGE SC SCH (20:52)
[2024-09-28] MEDS: Enoxaparin 30 MG (0.3 mL) SYRINGE SC SCH (20:52)
[2024-09-28] MEDS: Pantoprazole 40 MG VIAL IVP SCH (20:53)
[2024-09-28] MEDS: predniSONE 1 MG TAB PO SCH (20:53)
[2024-09-28] MEDS: diphenhydrAMINE 50 MG/ML VIAL IVP SCH ×2 (20:53→21:35)
[2024-09-28] MEDS: fentaNYL 50 mcg/mL 1 mL Vial SLOW IVP PRN (20:59)
[2024-09-28] MEDS ORDERED: Enoxaparin 80 MG (0.8 mL) SYRINGE SC SCH (21:00)
[2024-09-28 21:25] LABS: Troponin I Less than 0.010 ng/mL (< 0.028)
[2024-09-29] MEDS ORDERED: diphenhydrAMINE 25 MG CAP PO PRN (02:30)
[2024-09-29 05:51] LABS: #Basophils Less than 0.03 10x3/uL (0.0-0.2); #Eosinophils Less than 0.03 10x3/uL (0.0-0.7); %Lymphocytes 7.5 % (21.0-51.0); %Monocytes 3.6 % (0.0-10.0); %Neutrophils 88.4 % (42.0-75.0); Hematocrit 31.4 % (42.0-52.0); Hemoglobin 9.7 g/dL (14.0-18.0); Mean Corpuscular HGB CONC 30.9 g/dL (32.0-36.0); Mean Corpuscular Hemoglobin 25.7 pg (27.0-31.0); Mean Corpuscular Volume 83.1 fL (78.0-98.0); Mean Platelet Volume 9.5 fL (7.4-10.4); Platelet Count 199 10x3/uL (130-400); RBC Distribution Width 13.8 % (11.5-14.5); Red Blood Cell (RBC) Count 3.78 mill/uL (4.70-6.10)
[2024-09-29 06:03] LABS: Anion Gap 13 mmol/L (10-20); BUN (Urea Nitrogen) 12 mg/dL (8.9-20.6); Calc. Creatinine Clearance 178 mL/min (70-130); Calcium 8.9 mg/dL (7.8-10.44); Carbon Dioxide 22 mmol/L (22-29); Chloride 108 mmol/L (98-107); Estimated GFR 88; Glucose 155 mg/dL (70-105); Potassium 4.5 mmol/L (3.5-5.1); Sodium 138 mmol/L (136-145)
[2024-09-29] MEDS: diphenhydrAMINE 50 MG/ML VIAL IVP SCH ×2 (06:17→13:57)
[2024-09-29] MEDS: Vancomycin (BATCH) 1.75 GM in Premix 1 BAG IVPB SCH (06:18)
[2024-09-29] MEDS: Cefepime 1 GM in Sodium Chloride 0.9% 100 ML IVPB SCH (09:09)
[2024-09-29] MEDS: Enoxaparin 30 MG (0.3 mL) SYRINGE SC SCH (09:10)
[2024-09-29] MEDS: Pantoprazole 40 MG VIAL IVP SCH (09:10)
[2024-09-29] MEDS: Enoxaparin 100 MG (1 mL) SYRINGE SC SCH (09:11)
[2024-09-29] MEDS: Ondansetron PF 4 MG/2 ML Vial IVP PRN (11:16)
[2024-09-29 12:20] LABS: Troponin I Less than 0.010 ng/mL (< 0.028)
[2024-09-29] MEDS: Cefepime 2 GM in Sodium Chloride 0.9% 100 ML IVPB SCH (16:37)
[2024-09-29] MEDS: HYDROmorphone 2 MG TAB PO PRN (16:37)
[2024-09-29] MEDS: Enoxaparin 40 MG (0.4 mL) SYRINGE SC SCH (20:10)
[2024-09-29] MEDS: Diazepam 5 MG TAB PO SCH (20:11)
[2024-09-30 01:38] LABS: Bacteria/HPF None Seen HPF (None Seen); Bilirubin Negative (Negative); Blood, Urine Negative (Negative); CAUTI Indications for Culture Immunosuppressed; Clarity Clear (Clear); Glucose, Urine (Dipstick) Normal (Negative); Ketone, Urine Trace mg/dL (Negative); Leukocyte Negative Leu/uL (Negative); Nitrite Negative (Negative); Protein, Urine (Dipstick) 10 mg/dL (Neg-Trace); RBC/HPF 0-3 HPF (0-3); Specific Gravity, Urine 1.032 (1.002-1.036); Squamous Epithelial None Seen HPF (0-3); Urobilinogen Normal mg/dL (Less than 2); WBC/HPF 0-3 HPF (0-3)
[2024-09-30 01:40] LABS: Urine Culture Reflex Yes Yes
[2024-09-30 05:01] LABS: #Basophils Less than 0.03 10x3/uL (0.0-0.2); %Basophils 0.3 % (0.0-1.0); %Eosinophils 1.5 % (0.0-10.0); %Lymphocytes 20.1 % (21.0-51.0); %Monocytes 18.6 % (0.0-10.0); %Neutrophils 59.5 % (42.0-75.0); Hematocrit 30.5 % (42.0-52.0); Hemoglobin 9.4 g/dL (14.0-18.0); Mean Corpuscular HGB CONC 30.8 g/dL (32.0-36.0); Mean Corpuscular Hemoglobin 25.8 pg (27.0-31.0); Mean Corpuscular Volume 83.6 fL (78.0-98.0); Mean Platelet Volume 9.2 fL (7.4-10.4); Platelet Count 181 10x3/uL (130-400); Red Blood Cell (RBC) Count 3.65 mill/uL (4.70-6.10)
[2024-09-30 05:37] LABS: Anion Gap 13 mmol/L (10-20); BUN (Urea Nitrogen) 12 mg/dL (8.9-20.6); Calc. Creatinine Clearance 165 mL/min (70-130); Calcium 8.3 mg/dL (7.8-10.44); Carbon Dioxide 27 mmol/L (22-29); Chloride 106 mmol/L (98-107); Estimated GFR 81; Glucose 110 mg/dL (70-105); Potassium 3.6 mmol/L (3.5-5.1); Sodium 142 mmol/L (136-145)
[2024-09-30] MEDS: Promethazine HCl 12.5 MG in Sodium Chloride 0.9% 50 ML IVPB PRN (08:30)
[2024-09-30] MEDS: Atenolol 50 MG TAB PO SCH (08:32)
[2024-09-30] MEDS: Escitalopram Oxalate 10 mg Tablet PO SCH (08:32)
[2024-09-30] MEDS: Atorvastatin Calcium 40 MG TAB PO SCH (08:32)
[2024-09-30] MEDS: fentaNYL 50 mcg/mL 1 mL Vial SLOW IVP PRN (13:23)
[2024-09-30 17:49] VITALS: BP 110/61; TEMP 98.2
[2024-09-30] MEDS ORDERED: Pantoprazole 40 MG DR.TAB PO SCH (21:00)
== END 2024-09-30 20:15 | disposition left against medical advice (07) | DRG 312 ==
LOC: ERS 09:53 → OBS 18:05 → OBSVTOIN 09-29 10:37
PROVIDERS: ADMIT Internal Medicine; ATTEND Hospitalist
DX: R55 Syncope and collapse (principal); R78.81 Bacteremia; I42.9 Cardiomyopathy, unspecified; D84.89 Other immunodeficiencies; E27.40 Unspecified adrenocortical insufficiency; E27.1 Primary adrenocortical insufficiency; R07.89 Other chest pain; I10 Essential (primary) hypertension; D35.01 Benign neoplasm of right adrenal gland; E78.5 Hyperlipidemia, unspecified; Z53.29 Procedure and treatment not carried out because of patient's decision for other reasons; Z95.0 Presence of cardiac pacemaker; Z79.01 Long term (current) use of anticoagulants; Z88.2 Allergy status to sulfonamides; Z88.8 Allergy status to other drugs, medicaments and biological substances
CPT/HCPCS: 36415; 71045; 71275; 80048; 80053; 80202; 81001; 83605; 84443; 84484; 85025; 85379; 86141; 87040; 87086; 93005; 93010; 93306; 93880; 94760; 96365; 96372; 96375; 96376; G0378; J0692; J1171; J1200; J1650; J2405; J2470; J2550; J2919; J3010; J3370; J3490; J7030; J7512; Q9967

== ENCOUNTER 2024-10-08 07:35 | Emergency (ER) | payer OTHER, SELFPAY ==
[2024-10-08] MEDS ORDERED: Famotidine/PF 20 mg/2ml Vial ONE (08:12)
[2024-10-08] MEDS ORDERED: Ondansetron PF 4 MG/2 ML Vial ONE (08:12)
[2024-10-08] MEDS ORDERED: diphenhydrAMINE 50 MG/ML VIAL ONE (08:12)
[2024-10-08] MEDS ORDERED: methylPREDNISolone Sod Succ 40 MG VIAL ONE (08:12)
[2024-10-08] MEDS ORDERED: Morphine 4 MG/ML VIAL ONE (08:12)
[2024-10-08 09:38] LABS: #Basophils Less than 0.03 10x3/uL (0.0-0.2); %Basophils 0.5 % (0.0-1.0); %Eosinophils 1.7 % (0.0-10.0); %Lymphocytes 27.5 % (21.0-51.0); %Monocytes 15.4 % (0.0-10.0); %Neutrophils 54.2 % (42.0-75.0); Hematocrit 30.3 % (42.0-52.0); Hemoglobin 9.4 g/dL (14.0-18.0); Mean Corpuscular Hemoglobin 25.5 pg (27.0-31.0); Mean Corpuscular Volume 82.1 fL (78.0-98.0); Mean Platelet Volume 9.5 fL (7.4-10.4); Platelet Count 238 10x3/uL (130-400); RBC Distribution Width 13.9 % (11.5-14.5); Red Blood Cell (RBC) Count 3.69 mill/uL (4.70-6.10)
[2024-10-08 09:53] LABS: INR-International Normal Ratio 1.1; Prothrombin Time 13.7 sec (12.0-14.7)
[2024-10-08 10:02] LABS: Amphetamine Not Detected (NotDetected); Barbiturates Screen Not Detected (NotDetected); Benzodiazepine Screen Detected (NotDetected); Cocaine Metabolite Screen Not Detected (NotDetected); Methadone Not Detected (NotDetected); Methamphetamine Not Detected (NotDetected); Opiate Screen Detected (NotDetected); Oxycodone Screen Not Detected (NotDetected); Phencyclidine (PCP) Not Detected (NotDetected); THC/Cannabinoid Screen Not Detected (NotDetected); Tricyclic Screen Not Detected (NotDetected)
[2024-10-08 10:03] LABS: ALT (SGPT) 33 U/L (Less than 45); AST (SGOT) 23 U/L (11-34); Albumin 3.8 g/dL (3.1-4.5); Alkaline Phosphatase 69 U/L (40-110); Anion Gap 14 mmol/L (10-20); BUN (Urea Nitrogen) 13 mg/dL (8.9-20.6); Bilirubin, Total 0.5 mg/dL (0.3-1.2); Calc. Creatinine Clearance 0 mL/min (70-130); Carbon Dioxide 27 mmol/L (22-29); Chloride 102 mmol/L (98-107); Estimated GFR 78; Globulin 3.2 g/dL (2.4-3.5); Glucose 124 mg/dL (70-105); Lipase 46 U/L (8-78); Potassium 3.4 mmol/L (3.5-5.1); Sodium 140 mmol/L (136-145)
[2024-10-08] MEDS ORDERED: HYDROmorphone 0.5 MG/0.5 ML SYRINGE ONE (10:07)
== END 2024-10-08 12:06 | disposition home or self-care (01) ==
LOC: ERS 07:35
DX: R07.9 Chest pain, unspecified (principal); R55 Syncope and collapse; Z79.82 Long term (current) use of aspirin; Z55.6 Problems related to health literacy; Z95.0 Presence of cardiac pacemaker; Y93.67 Activity, basketball
CPT/HCPCS: 71045; 71275; 80053; 80306; 80307; 83690; 83880; 84145; 84484; 85025; 85610; 93005; 94760; 96374; 96375; J1171; J1200; J2270; J2405; J2919; J3490